=== PATIENT | male | born 1955 | race Caucasian/White ===

== ENCOUNTER 2017-05-18 05:29 | Inpatient (IN) | payer MEDICARE, OTHER ==
[2017-05-18] VITALS (33 sets, daily range): BP systolic 105–187; BP diastolic 48–138
[~2017-05-18] VITALS: Ht 177.8 cm; Wt 80.0 kg
[~2017-05-18 05:29] MED LIST: ALENDRONATE SOD70 MG PO; ATENOLOL50 MG PO; ATORVASTATIN CA20 MG PO; CALCIUM CARBON500 MG PO; CLONAZEPAM1 MG PO; CLONIDINE HCL0.2 MG PO; HYDROCORTISONE10 MG PO; LASIX20 MG PO; LEVOTHYROXINE50 MCG PO; LISINOPRIL10 MG PO; NIFEDIPINE ER60 M1 PO; NORCO 10-325 T1 EACH PO; PHENYTOIN SODI200 MG PO; PLAVIX75 MG PO; TAMSULOSIN HCL0.4 MG PO; ULTRAM50 MG PO; VITAMIN D1000 UNIT PO
[2017-05-18] MEDS ORDERED: GENTAMICIN 80MG/NS 100 ML 200 ML IV ONE (06:37)
[2017-05-18] MEDS ORDERED: IOPAMIDOL 610MG/1ML 300 MG/ML VIAL IV ONE (06:47)
[2017-05-18] MEDS ORDERED: BELLADONNA/OPIUM 60 MG SUPP PR ONE (06:47)
[2017-05-18] MEDS ORDERED: FENTANYL CITRATE/PF 100MCG/2 ML INJ ONE ×2 (08:00→18:30)
[2017-05-18] MEDS ORDERED: DIPHENHYDRAMINE HCL INJ 1 ML ONE (08:14)
[2017-05-18] MEDS ORDERED: MORPHINE SULFATE 5 MG/ML VIAL ONE (08:19)
[2017-05-18] MEDS ORDERED: HYDRALAZINE HCL 20 MG/ML VIAL ONE (08:36)
[2017-05-18] MEDS ORDERED: PROPOFOL IV EMULSION 10 MG/ML 20 ML VIAL ONE ×3 (08:48→18:23)
[2017-05-18] MEDS ORDERED: MIDAZOLAM HCL 2 MG/2 ML VIAL ONE ×2 (08:50→18:30)
--- NOTE | 2017-05-18 09:42 | Operative Report ---
DATE OF PROCEDURE: May 18, 2017 PREOPERATIVE DIAGNOSES 1. Obstructive BPH. 2. Urinary retention. POSTOPERATIVE DIAGNOSES 1. Obstructive BPH. 2. Urinary retention. OPERATIONS PERFORMED 1. Cystourethroscopy with bilateral ureteral catheterization and retrograde ureteropyelography (separate procedure performed to evaluate the upper and lower urinary tracts in light of the urinary retention). 2. Interpretation of retrograde ureteropyelography. 3. Cystourethroscopy with transurethral implantation of 4 UroLift implants. ANESTHESIA: General. COMPLICATIONS: None. CLINICAL SUMMARY: Vivek Madera is a 62-year-old man with a complicated urological history. The patient has a long and complicated history. The patient is status post radiotherapy utilizing brachytherapy for prostate cancer. He has developed urinary retention. and had a Lo catheter placed. He is brought to the operating room in order to places his UroLift implants in hopes of getting the patient out of urinary retention. He is aware of the risks of bleeding, infection, injury to adjacent structures, failure, need for additional procedures, and elected to proceed. The patient is a higher risk surgical candidate and he had long discussion with anesthesiology service preoperatively. OPERATIVE PROCEDURE IN DETAIL: Informed consent was verified. Vivek Madera was properly identified and taken to the operating room and placed on the cystoscopy table in the supine position. Anesthesia was uneventfully begun. The patient was then carefully and gently repositioned in the dorsal lithotomy position with all pressure points well-padded. His genitalia were prepared and draped in the usual sterile fashion. A 22.5-Norwegian cystoscope sheath with visual obturator in place was atraumatically inserted in the patient's urethra. It was passed down an unremarkable urethra through the normal sphincteric region and into the prostate bed, which was significant for visually obstructing bilobar BPH. Panendoscopy of the urinary bladder revealed some erythema of the bladder wall. No tumors, stones and no suspicious lesions were identified. An 8-Norwegian catheter was used to cannulate each ureter and retrograde ureteropyelograms were performed. Interpretation of retrograde ureteropyelography. Contrast was instilled in a retrograde fashion bilaterally. There were no tumors, no stones and no diverticula. Unobstructed drainage was observed bilaterally fluoroscopically. Care was taken not to over-inject due to the patient's contrast allergy. Brachytherapy seeds were noted throughout the prostate. The cystoscope was withdrawn. We introduced the 20-Norwegian cystoscope sheath with the visual obturator in place and guided into the patient's bladder atraumatically. We then implanted 4 UroLift implants anterolaterally 1.5 cm distal to the bladder neck on either side and anterolaterally on either side at the level of verumontanum. This resulted in a continuous anterior channel continuously opening the anterior channel. Hemostasis seemed to be adequate. The prostatic urethra was rather short measuring approximately 2 to 2.5 cm in length. The cystoscope was then withdrawn. The at that point in time we noted some blood dripping from the urethral meatus. Therefore, a 16-Norwegian all silicone Lo catheter was placed. It was irrigated to and fro to ensure it worked properly. A belladonna and opium suppository was placed revealing a 30 g prostate that was firm without any distinct nodule. The patient was then uneventfully reversed from anesthesia and taken to the recovery room in stable condition. There were no complications to the procedure well. He tolerated the procedure well. Plans will be to discharge the patient home. Have him remove the Lo catheter after the weekend, and hopefully the patient will void and will perform uroflowmetry and bladder ultrasonography in about a month. Job#: [id number] KEN
[2017-05-18] MEDS ORDERED: FOSPHENYTOIN 1,000 MG in SODIUM CHLORIDE 0.9% 100 ML 100 ML IV ONE (10:30)
[2017-05-18] MEDS: MORPHINE SULFATE 2 MG/ML SYR IV PRN ×2 (12:44→17:00)
[2017-05-18] MEDS: LORAZEPAM INJ 2 MG/ML VIAL IV PRN (12:44)
[2017-05-18] MEDS ORDERED: DEXAMETHASONE SOD PHOS INJ 4 MG/ML VIAL ONE (18:23)
[2017-05-18] MEDS ORDERED: EPHEDRINE SULFATE INJ 50 MG/10 ML SYR ONE (18:23)
[2017-05-18] MEDS ORDERED: LABETALOL HCL 5 MG/ML 20ML VIAL ONE (18:23)
[2017-05-18] MEDS ORDERED: SEVOFLURANE INHAL SOLN 250 ML PEN BTL ONE (18:23)
[2017-05-18] MEDS ORDERED: ONDANSETRON HCL INJ 2 MG/ML VIAL ONE (18:23)
[2017-05-18] MEDS ORDERED: LIDOCAINE HCL 2% LOCAL INJ 5 ML SDV VIAL INJ ONE (18:23)
[2017-05-18] MEDS: LISINOPRIL 20 MG TAB PO SCH (20:51)
[2017-05-18] MEDS ORDERED: CLONIDINE HCL 0.2 MG TAB PO SCH (21:00)
[2017-05-18] MEDS ORDERED: LISINOPRIL 10 MG TAB PO SCH (21:00)
--- NOTE | 2017-05-18 21:49 | Consultation ---
DATE OF CONSULTATION: May 18, 2017 NEUROLOGY CONSULT NOTE DATE OF : 1955 HISTORY OF PRESENT ILLNESS: Mr. Evans is a 62-year-old man with past medical history significant for high blood pressure, high cholesterol, COPD, asthma, seizure disorder, and developmental delay, admitted to [facility] on May 18, 2017, for cystourethroscopy with transurethral implantation of 4 UroLift implants. Following this procedure, while in recovery, the patient was witnessed to have multiple generalized tonic-clonic seizures. He was treated with Versed 2 mg IV once and Haldol 2 mg IV once. He was then transferred to the intensive care unit for further evaluation and treatment. In the intensive care unit, the patient received a loading dose of fosphenytoin 1000 mg IV once. 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 He is responsive or tangential and he requires frequent redirection. The patient reports experiencing a traumatic brain injury resulting from a fall in his late teens or early 20s. Sometime after this, the patient began to have seizures. Mr. Evans is unable to describe the semiology, frequency or triggers for his seizures. He does report his last seizure was approximately 10 years ago. He was previously treated with phenobarbital, but this medicine was discontinued for an unknown reason. Currently, he takes Dilantin 200 mg by mouth 4 times daily. The patient does report compliance with his medication. He took his last dose on the morning of admission. However, the patient later states his "schedule may be a little off" in regards to his medications. When asked what was meant by this, the patient could not answer. REVIEW OF SYSTEMS: Abdominal pain, urinary retention, weak urinary stream, seizures. Otherwise, a 12-point review of systems is negative. PAST MEDICAL HISTORY: Hypertension, hyperlipidemia, COPD, asthma, thyroid disease, depression, seizures, developmental delay, alcoholism, congestive heart failure, peripheral neuropathy, benign prostatic hypertrophy, and prior diagnosis of FIELD [employer]EMAN vasculitis, which was treated with chemotherapy for approximately 8 years. PAST SURGICAL HISTORY: The cystourethroscopy performed today, May 18, 2017, laparoscopic cholecystectomy, surgeries on both feet/ankles, sural nerve biopsy, brain biopsy. PAST HOSPITALIZATIONS: The patient has been hospitalized multiple times for the seizures listed above. Mr. Evans indicates he has been hospitalized for other reasons, but is uncertain as to why these other hospitalizations took place. FAMILY HISTORY: The patient is unable to provide a family history. SOCIAL HISTORY: Mr. Evans is single. It is unknown how far he went in school. However, he does report attending special education classes. 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 Mr Evans is a former smoker with a 40-pack history of cigarette use. He has quit smoking. The patient does report a prior history of alcohol abuse. He states he is not currently drinking alcohol. Recreational drug use, current or prior is unknown. HOME MEDICATIONS 1. Alendronate sodium 70 mg by mouth daily. 2. Atenolol 25 mg by mouth daily. 3. Atorvastatin 40 mg by mouth daily. 4. Calcium carbonate 500 mg by mouth daily. 5. Vitamin D3 1000 international units by mouth daily. 6. Clonazepam 1 mg by mouth twice daily. 7. Clonidine 0.25 mg by mouth 3 times daily. 8. Plavix 75 mg by mouth daily. 9. Hydrocortisone 20 mg by mouth daily. 10. Hydrocortisone 10 mg by mouth at bedtime. 11. Levothyroxine 50 mcg by mouth daily. 12. Lisinopril 40 mg by mouth daily. 13. Nifedipine ER 60 mg by mouth twice daily. 14. Phenytoin sodium ER 200 mg by mouth 4 times daily. 15. Tamsulosin 0.4 mg by mouth daily. 16. Tramadol 50 mg by mouth 3 times daily as needed for pain. ALLERGIES: PENICILLIN AND CEPHALOSPORINS. NO KNOWN FOOD ALLERGIES. NO KNOWN LATEX ALLERGY. MR. EVANS IS ALLERGIC TO IODINATED CONTRAST. PHYSICAL EXAMINATION VITAL SIGNS: Height 70 inches, weight 170 lbs, BMI 24.4 kg per meter squared. Blood pressure 174/82 mmHg, pulse 70 beats per minute, respiratory rate 18 breaths per minute, oxygen saturation is 100% on 2 L via nasal cannula. GENERAL: The patient is awake and alert. Does not appear distressed. HEENT: Normocephalic, atraumatic. Pupils are pinpoint. Moist mucous membranes. NECK: Supple. No appreciable thyromegaly. No appreciable carotid bruits. CARDIOVASCULAR: S1, S2. Regular rate and rhythm. No murmurs, rubs or gallops. RESPIRATORY: Clear to auscultation bilaterally. No wheezes, rhonchi or rales. EXTREMITIES: The skin is warm and dry. No clubbing, cyanosis or edema. The posterior tibial and dorsalis pedis pulses are 2+ and symmetric. SKIN: No rashes or lesions. NEUROLOGIC MEMORY/ATTENTION: The patient is awake and alert, oriented to person only. As mentioned in the history of present illness, Mr. Evans's responses are tangential and he is a poor medical technologist microbiology. CRANIAL NERVES: Cranial nerve I--not tested. Cranial nerves II, III, IV, and --pupils are pinpoint, extraocular movements intact, no nystagmus. Cranial nerve V--sensation to light touch and pinprick is intact in the bilateral V1 through V3 distributions. Strength of the temporalis and masseter muscles is within normal limits. Cranial nerve VII--the face is symmetric as the all facial movements. Strength is within normal limits. Cranial nerve VIII--hearing is intact to finger rub bilaterally. Cranial nerve IX, X--the soft palate elevates equally and symmetrically. Cranial nerve XI--normal strength of the bilateral sternocleidomastoid and trapezius muscles. Cranial nerve XII--the tongue protrudes midline and moves symmetrically from side to side. STRENGTH: Bulk is normal and strength is 5/5 in the bilateral deltoids, triceps, wrist flexors, and extensors, single flexors and extensors, intrinsic hand muscles, hip flexors, knee flexors and extensors, ankle dorsiflexion and plantar flexion and intrinsic foot muscles. Tone is normal. DTRs: Deep tendon reflexes are 2+ and symmetric at the triceps, biceps, and brachioradialis, and patellas. The Achilles reflexes are trace and symmetric. Plantar responses are flexor bilaterally. SENSATION: Sensation is intact to light touch and pinprick in both arms and both legs. CEREBELLAR: [id number] and [id number] movements are intact without dysmetria or other impairment. GAIT: Deferred. SPEECH: Spontaneous speech is mildly dysarthric without aphasia. Repetition is intact. Paraphasic errors. INVOLUNTARY MOVEMENTS: None. PRONATOR DRIFT: None. LABORATORY DATA: Phenytoin level 8.43. ASSESSMENT AND PLAN: Mr. Evans is a 62-year-old man with an extensive past medical history as described above admitted to [facility] on May 18, 2017, for cystourethroscopy with transurethral implantation of 4 UroLift implants. While in recovery, the patient was witnessed to have multiple generalized tonic-clonic seizures. He was treated with Versed 2 mg IV once and Haldol 2 mg IV once. He was then transferred to the intensive care unit for further evaluation and treatment. A phenytoin level was found to be low at 8.43. The patient was treated with a loading dose of 1000 mg IV once. Mr. Evans's neurological examination is nonfocal. His laboratory data and is documented above. Mr. Evans has a known seizure disorder. Today, May 18, 2017, the patient experienced a breakthrough seizure secondary to a subtherapeutic phenytoin level. He has been treated with a loading dose of phenytoin. Recommendations are as follows: 1. Seizure disorder--continue treatment with the patient's home medication of Dilantin 200 mg by mouth 4 times daily. A repeat phenytoin level will be drawn in the morning. 2. Hypertension: The patient's blood pressure has been moderately to markedly elevated while in the intensive care unit. I have instructed the patient's nurse to resume treatment with his home antihypertensive medications. 3. Hypothyroidism--treatment with levothyroxine 50 mcg by mouth daily will be resumed on the morning of May 19, 2017. 4. Defer treatment of the patient's remaining medical comorbidities to the primary and other services. Thank you for this consultation. I will continue to follow the patient while he remains in the hospital. TIME SPENT: 70 minutes. Job#: [id number] CQ
[2017-05-19] VITALS (36 sets, daily range): BP systolic 131–200; BP diastolic 55–116
[2017-05-19] MEDS: MORPHINE SULFATE 2 MG/ML SYR IV PRN ×3 (00:24→19:52)
[2017-05-19] MEDS: LEVOTHYROXINE SODIUM 50 MCG TAB PO SCH (05:00)
[2017-05-19] MEDS: CLONIDINE HCL 0.2 MG TAB PO SCH ×3 (06:03→22:00)
[2017-05-19] MEDS: LORAZEPAM INJ 2 MG/ML VIAL IV PRN ×2 (07:36→22:09)
[2017-05-19] MEDS: ATENOLOL 50 MG TAB PO SCH (08:41)
[2017-05-19] MEDS ORDERED: NICOTINE 14 MG/EA PATCH TOP SCH (09:00)
[2017-05-19] MEDS: NIFEDIPINE CR 30 MG TAB PO SCH ×2 (12:13→19:00)
[2017-05-19 12:34] LABS: BASOPHILS % 0.2 % (0.0-1.0); EOSINOPHILS % 0.6 % (0.0-6.0); HEMATOCRIT 33.3 % (38.2-49.6); HEMOGLOBIN 10.8 g/dL (14.0-18.0); LYMPHOCYTES # (AUTO) 0.8 (1.0-3.2); LYMPHOCYTES % 15.1 % (18.0-39.1); MEAN CORPUSCULAR HEMOGLOBIN 29.8 pg (28-32); MEAN CORPUSCULAR HGB CONC 32.4 g/dL (31-35); MONOCYTES # (AUTO) 0.7 (0.2-0.8); MONOCYTES % 12.6 % (4.4-11.3); NEUTROPHILS # (AUTO) 3.8 (2.1-6.9); NEUTROPHILS % 71.3 % (38.7-80.0); PLATELET COUNT 145 x10e3/uL (140-360); RED BLOOD COUNT 3.62 x10e6/uL (4.3-5.7); RED CELL DISTRIBUTION WIDTH 12.2 % (11.7-14.4)
[2017-05-19 12:50] LABS: ANION GAP 13.3 mmol/L (8-16); BLOOD UREA NITROGEN 13 mg/dL (7-26); BUN/CREATININE RATIO 13 (6-25); CALCIUM 8.6 mg/dL (8.4-10.2); CARBON DIOXIDE 29 mmol/L (22-29); CHLORIDE 100 mmol/L (98-107); CREATININE, SERUM 1.03 mg/dL (0.72-1.25); EST GLOMERULAR FILTRATION RATE > 60 ML/MIN (60-); POTASSIUM 4.3 mmol/L (3.5-5.1); SODIUM 138 mmol/L (136-145)
[2017-05-19 12:52] LABS: GLUCOSE 55 mg/dL (74-118)
[2017-05-19] MEDS: PHENYTOIN SODIUM EXT REL 100 MG CAP PO SCH (18:39)
[2017-05-19] MEDS: LISINOPRIL 20 MG TAB PO SCH (19:53)
[2017-05-20] VITALS (8 sets, daily range): BP systolic 167–196; BP diastolic 73–86
[2017-05-20] MEDS: MORPHINE SULFATE 2 MG/ML SYR IV PRN ×2 (00:09→05:35)
[2017-05-20] MEDS: PHENYTOIN SODIUM EXT REL 100 MG CAP PO SCH ×3 (00:09→20:18)
[2017-05-20] MEDS ORDERED: TAMSULOSIN HCL 0.4 MG CAP PO SCH ×2 (00:10→17:00)
[2017-05-20] MEDS ORDERED: TAMSULOSIN HCL 0.4 MG CAP PO ONE (01:00)
[2017-05-20] MEDS: CLONIDINE HCL 0.2 MG TAB PO SCH ×3 (06:27→22:08)
[2017-05-20] MEDS: LEVOTHYROXINE SODIUM 50 MCG TAB PO SCH (06:27)
[2017-05-20 06:30] LABS: BASOPHILS % 0.2 % (0.0-1.0); EOSINOPHILS % 0.7 % (0.0-6.0); HEMATOCRIT 34.3 % (38.2-49.6); LYMPHOCYTES # (AUTO) 0.7 (1.0-3.2); LYMPHOCYTES % 15.6 % (18.0-39.1); MEAN CORPUSCULAR HEMOGLOBIN 29.5 pg (28-32); MEAN CORPUSCULAR HGB CONC 32.1 g/dL (31-35); MONOCYTES # (AUTO) 0.5 (0.2-0.8); MONOCYTES % 11.1 % (4.4-11.3); NEUTROPHILS % 71.9 % (38.7-80.0); PLATELET COUNT 132 x10e3/uL (140-360); RED BLOOD COUNT 3.73 x10e6/uL (4.3-5.7); RED CELL DISTRIBUTION WIDTH 12.2 % (11.7-14.4)
[2017-05-20 06:51] LABS: ANION GAP 13.3 mmol/L (8-16); BLOOD UREA NITROGEN 14 mg/dL (7-26); BUN/CREATININE RATIO 14 (6-25); CARBON DIOXIDE 32 mmol/L (22-29); CHLORIDE 100 mmol/L (98-107); CREATININE, SERUM 0.98 mg/dL (0.72-1.25); EST GLOMERULAR FILTRATION RATE > 60 ML/MIN (60-); GLUCOSE 87 mg/dL (74-118); MAGNESIUM 1.8 MG/DL (1.3-2.1); POTASSIUM 4.3 mmol/L (3.5-5.1); SODIUM 141 mmol/L (136-145)
[2017-05-20] MEDS: TAMSULOSIN HCL 0.4 MG CAP PO SCH ×2 (10:17→22:08)
[2017-05-20] MEDS: NIFEDIPINE CR 30 MG TAB PO SCH ×2 (10:17→16:34)
[2017-05-20] MEDS: ATENOLOL 50 MG TAB PO SCH (10:17)
[2017-05-20] MEDS ORDERED: PHENYTOIN SODI100 MG PO (11:24)
[2017-05-20] MEDS: LISINOPRIL 20 MG TAB PO SCH (20:18)
[2017-05-20] MEDS ORDERED: SENNOSIDES 8.6 MG TAB PO SCH (21:00)
[2017-05-20] MEDS: LORAZEPAM INJ 2 MG/ML VIAL IV PRN (23:34)
[2017-05-21 00:29] VITALS: BP 168/76
[2017-05-21] MEDS: ACETAMINOPHEN 325 MG TAB PO PRN ×2 (04:54→15:15)
[2017-05-21 05:11] VITALS: BP 179/81
[2017-05-21] MEDS: CLONIDINE HCL 0.2 MG TAB PO SCH ×2 (06:08→14:00)
[2017-05-21] MEDS: LEVOTHYROXINE SODIUM 50 MCG TAB PO SCH (06:08)
[2017-05-21 06:38] LABS: BASOPHILS % 0.3 % (0.0-1.0); EOSINOPHILS # (AUTO) 0.1 (0.0-0.4); EOSINOPHILS % 1.6 % (0.0-6.0); HEMATOCRIT 31.1 % (38.2-49.6); HEMOGLOBIN 10.1 g/dL (14.0-18.0); LYMPHOCYTES # (AUTO) 0.5 (1.0-3.2); LYMPHOCYTES % 12.5 % (18.0-39.1); MEAN CORPUSCULAR HEMOGLOBIN 29.8 pg (28-32); MEAN CORPUSCULAR HGB CONC 32.5 g/dL (31-35); MEAN CORPUSCULAR VOLUME 91.7 fL (81-99); MONOCYTES # (AUTO) 0.4 (0.2-0.8); MONOCYTES % 10.2 % (4.4-11.3); NEUTROPHILS # (AUTO) 2.9 (2.1-6.9); NEUTROPHILS % 74.9 % (38.7-80.0); PLATELET COUNT 123 x10e3/uL (140-360); RED BLOOD COUNT 3.39 x10e6/uL (4.3-5.7); RED CELL DISTRIBUTION WIDTH 12.3 % (11.7-14.4)
[2017-05-21 06:55] LABS: ANION GAP 12.3 mmol/L (8-16); BLOOD UREA NITROGEN 15 mg/dL (7-26); BUN/CREATININE RATIO 15 (6-25); CALCIUM 8.5 mg/dL (8.4-10.2); CARBON DIOXIDE 32 mmol/L (22-29); CHLORIDE 100 mmol/L (98-107); CREATININE, SERUM 0.99 mg/dL (0.72-1.25); EST GLOMERULAR FILTRATION RATE > 60 ML/MIN (60-); GLUCOSE 86 mg/dL (74-118); POTASSIUM 4.3 mmol/L (3.5-5.1); SODIUM 140 mmol/L (136-145)
[2017-05-21] MEDS: ATENOLOL 50 MG TAB PO SCH ×2 (09:00→12:00)
[2017-05-21] MEDS ORDERED: NIFEDIPINE CR 30 MG TAB PO SCH ×2 (09:00→21:00)
[2017-05-21] MEDS: PHENYTOIN SODIUM EXT REL 100 MG CAP PO SCH (10:00)
[2017-05-21] MEDS: TAMSULOSIN HCL 0.4 MG CAP PO SCH (10:00)
[2017-05-21 10:15] LABS: BILIRUBIN,URINE NEGATIVE (NEGATIVE); KETONES,URINE NEGATIVE (NEGATIVE); LEUKOCYTE ESTERASE ,URINE NEGATIVE (NEGATIVE); NITRITE,URINE NEGATIVE (NEGATIVE); PROTEIN,URINE DIPSTICK NEGATIVE (NEGATIVE); URINE UROBILINOGEN 0.2 mg/dL (0.2 - 1)
[2017-05-21 10:16] LABS: CLARITY,URINE CLEAR (CLEAR); COLOR,URINE STRAW (YELLOW)
[2017-05-21 10:34] LABS: EPITHELIAL CELLS,URINE RARE /LPF
[2017-05-21 12:00] VITALS: BP 184/78
[2017-05-21] MEDS: AZTREONAM (AZACTAM) 1 GM in SODIUM CHLORIDE 0.9% 50ML 50 ML IV SCH ×2 (14:00→15:46)
[2017-05-21] MEDS ORDERED: SODIUM CHLORIDE 0.9% 250ML 250 ML ONE (14:22)
[2017-05-21 16:25] VITALS: BP 158/69
== END 2017-05-21 19:02 | DRG 726 ==
LOC: OR 05:29 → ICU 11:36 → MED/SURG 05-19 20:37
PROVIDERS: ADMIT Internal Medicine; ATTEND Internal Medicine
PROC: BT141ZZ Fluoroscopy of Kidneys, Ureters and Bladder using Low Osmolar Contrast (ICD-10-PCS; principal; 2017-05-18 07:00)
PROC: 0WHR8YZ Insertion of Other Device into Genitourinary Tract, Via Natural or Artificial Opening Endoscopic (ICD-10-PCS; principal; 2017-05-18 07:00)
DX: N40.1 Benign prostatic hyperplasia with lower urinary tract symptoms (principal); I11.0 Hypertensive heart disease with heart failure; I50.9 Heart failure, unspecified; G97.82 Other postprocedural complications and disorders of nervous system; E03.9 Hypothyroidism, unspecified; Z79.52 Long term (current) use of systemic steroids; G40.409 Other generalized epilepsy and epileptic syndromes, not intractable, without status epilepticus; R33.8 Other retention of urine; D64.9 Anemia, unspecified; J44.9 Chronic obstructive pulmonary disease, unspecified; G62.9 Polyneuropathy, unspecified; G47.33 Obstructive sleep apnea (adult) (pediatric); F32.9 Major depressive disorder, single episode, unspecified; J45.909 Unspecified asthma, uncomplicated; R26.81 Unsteadiness on feet; R62.50 Unspecified lack of expected normal physiological development in childhood; Z87.891 Personal history of nicotine dependence; Z85.46 Personal history of malignant neoplasm of prostate
CPT/HCPCS: 36415; 74420; 80048; 80185; 81001; 82947; 82948; 83735; 85025; 87086; 93005; 96367; J0360; J1100; J1200; J1580; J2001; J2060; J2250; J2270; J2405; J7050; Q2009